=== PATIENT | female | born 1950 | race Caucasian/White ===

== ENCOUNTER 2023-09-06 20:03 | Inpatient (IN) | payer BC, OTHER ==
[~2023-09-06] VITALS: Ht 165.1 cm; Wt 77.2 kg
[2023-09-06] MEDS: MIDAZOLAM DRIP 50 mg/50mL 50 ML IV ONE (01:40)
[2023-09-06] MEDS ORDERED: NOREPINEPHRINE 8 MG/250ML KIT 250 ML IV ONE (20:06)
[2023-09-06 20:26] LABS: Hematocrit 30.5 % (36.0-46.0); Hemoglobin 8.4 g/dL (12.2-16.2); Mean Corpuscular Hemoglobin 30.6 pg (28.0-32.0); Mean Corpuscular Hgb Conc. 27.7 g/dL (32.0-36.0); Mean Corpuscular Volume 110.4 fL (80.0-100.0); Red Blood Cells 2.76 10^6/uL (4.0-5.20); Red Cell Distribution Width 14.7 % (11.8-14.3); White Blood Cell 22.1 10^3/uL (4.4-10.8)
[2023-09-06 20:30] VITALS: PULSE 76; RESP 18; O2SAT 100
[2023-09-06 20:37] LABS: Basophils % (manual) 0 (0.0-2.0); Blast Cells 0; Promyelocytes % 0
[2023-09-06 20:47] LABS: Alanine Aminotransferase 392 U/L (7-40); Albumin 2.7 g/dL (3.2-4.8); Alkaline Phosphatase 115 U/L (46-116); Anion Gap 16.00001 (5-15); Aspartate Aminotransferase 744 U/L (13-40); BUN/Creatinine Ratio 28.1 (10.0-20.0); Blood Urea Nitrogen 76 mg/dL (9-23); Calcium 11.2 mg/dL (8.7-10.4); Chloride 105 mmol/L (98-107); Glucose 238 mg/dL (74-106); Magnesium 2.8 mg/dL (1.6-2.6); Sodium 131 mmol/L (136-145)
[2023-09-06 20:48] LABS: Bilirubin, Total 0.3 mg/dL (0.2-1.0); Total Protein 4.5 g/dL (5.7-8.2)
[2023-09-06 20:50] LABS: INR 1.51 (0.9-1.15); Prothrombin Time 15.4 sec (9.3-11.8)
[2023-09-06 20:59] LABS: Carbon Dioxide < 10 mmol/L (20-30); Partial Thromboplastin Time 74.1 SEC (24.5-34.5)
[2023-09-06 21:00] LABS: Potassium 7.9 mmol/L (3.5-5.1)
[2023-09-06 21:21] LABS: Band Neutrophils % (manual) 28; Eosinophils % (manual) 1 (0-7); Lymphocytes % (manual) 21 (10.0-50.0); Metamyelocytes % 4; Monocytes % (manual) 10 (0-12); Myelocytes % 1
[2023-09-06 21:23] LABS: Platelet Estimate Increased; Reactive Lymphocytes 2
[2023-09-06 21:24] LABS: Macrocytosis Marked
[2023-09-06] MEDS: InsuLIN REG 1unit/0.01ml Soln (100units/ml) IV ONE (21:30)
[2023-09-06 21:56] LABS: Lactic Acid w/Reflex 14.5 mmol/L (0.4-2.0)
[2023-09-06] MEDS: CALCIUM GLUC 1,000mg/50ml-NS 50 ML IV ONE (22:14)
[2023-09-06] MEDS: cefTRIAXone 1GM/50ML D5W 50 ML IV ONE (22:14)
[2023-09-06] MEDS: SODIUM BICARB 8.4% 50Meq/50ml SYR Vial IV ONE ×2 (22:15)
[2023-09-06] MEDS: VANCOMYCIN 1GM/200ML 200 ML IV ONE (22:15)
[2023-09-06] MEDS: SODIUM CHLORIDE 0.9% 1,700 ML IV ONE (22:15)
[2023-09-06] MEDS: PANTOPRAZOLE 40 MG/10 ML VIAL INJ IV ONE (22:26)
[2023-09-06] MEDS: DOPamine 1600MCG/ML D5W 250 ML IV ONE (22:26)
[2023-09-06] MEDS: MIDAZOLAM DRIP 50 mg/50mL 50 ML IV SCH (22:30)
[2023-09-06] MEDS: DEXTROSE (50%) 50ML SYRG IV ONE (22:43)
[2023-09-07] VITALS (7 sets, daily range): BP systolic 59–182; BP diastolic 15–50; PULSE 69–121; RESP 18–33; TEMP 99.1; O2SAT 82–94
[2023-09-07] MEDS: SODIUM BICARB 8.4% 50Meq/50ml SYR Vial IV ONE (01:35)
[2023-09-07] MEDS: NOREPINEPHRINE 8 MG/250ML KIT 250 ML IV ONE (01:40)
[2023-09-07 01:57] LABS: Base Excess -23.5 mmol/L (-2.0-2.0)
[2023-09-07] MEDS: NOREPINEPHRINE 8 MG/250ML KIT 250 ML IV SCH (02:03)
[2023-09-07 02:37] LABS: Chloride 107 mmol/L (98-107)
[2023-09-07 02:38] LABS: Calcium 8.3 mg/dL (8.5-10.1); Carbon Dioxide 14 mmol/L (20-30)
[2023-09-07 02:43] LABS: BUN/Creatinine Ratio 25.5 (10.0-20.0); Blood Urea Nitrogen 72 mg/dL (9-23); Glucose 80 mg/dL (74-106)
[2023-09-07 02:59] LABS: Anion Gap 15 (5-15); Sodium 136 mmol/L (136-145)
[2023-09-07 03:00] LABS: Potassium 6.5 mmol/L (3.5-5.1)
[2023-09-07] MEDS ORDERED: ONDANSETRON HCL 4 MG/2 ML VIAL IV PRN (03:15)
[2023-09-07] MEDS ORDERED: NITROGLYCERIN 0.4 MG SL TAB SL PRN (03:15)
[2023-09-07] MEDS: CALCIUM GLUC 1,000mg/50ml-NS 50 ML IV ONE (03:15)
[2023-09-07] MEDS ORDERED: MORPHINE SULFATE INJ 2 MG/ml SYRG IV PRN (03:15)
[2023-09-07] MEDS: SODIUM BICARB 8.4% 50Meq/50ml SYR INJ IV ONE (03:15)
[2023-09-07] MEDS: DEXTROSE (50%) 50ML SYRG IV ONE (03:15)
[2023-09-07] MEDS ORDERED: VANCOMYCIN PER PHARMACY 0 MG IV SCH (03:15)
[2023-09-07] MEDS: SODIUM CHLORIDE 0.9% 1,000 ML IV SCH (03:15)
[2023-09-07] MEDS: ALBUTEROL SULF 2.5 MG/0.5ML(0.5%) NEB SOLN NEB ONE (03:15)
[2023-09-07] MEDS: PHENYLEPHRINE IV 250 ML IV SCH (04:24)
[2023-09-07] MEDS: InsuLIN REG 1unit/0.01ml Soln (100units/ml) IV ONE (05:02)
[2023-09-07 05:20] LABS: Hematocrit 29.6 % (36.0-46.0); Hemoglobin 9.3 g/dL (12.2-16.2); Mean Corpuscular Hemoglobin 30.2 pg (28.0-32.0); Mean Corpuscular Hgb Conc. 31.5 g/dL (32.0-36.0); Mean Corpuscular Volume 96.1 fL (80.0-100.0); Red Blood Cells 3.08 10^6/uL (4.0-5.20); Red Cell Distribution Width 13.9 % (11.8-14.3); White Blood Cell 12.2 10^3/uL (4.4-10.8)
[2023-09-07 05:53] LABS: Lactic Acid w/Reflex 12.2 mmol/L (0.4-2.0)
[2023-09-07 06:20] LABS: Chloride 107 mmol/L (98-107); Sodium 137 mmol/L (136-145)
[2023-09-07 06:23] LABS: Calcium 8.5 mg/dL (8.5-10.1)
[2023-09-07 06:27] LABS: BUN/Creatinine Ratio 23.1 (10.0-20.0); Blood Urea Nitrogen 69 mg/dL (9-23); Glucose 72 mg/dL (74-106)
[2023-09-07 06:45] LABS: Anion Gap 20.00001 (5-15)
[2023-09-07 06:47] LABS: Carbon Dioxide < 10 mmol/L (20-30)
[2023-09-07 07:20] LABS: Blast Cells 0; Eosinophils % (manual) 0 (0-7); Promyelocytes % 0; Reactive Lymphocytes 0
[2023-09-07] MEDS: SODIUM BICARB 50mEq/50ml Vial 100 ML in D5W 5% 1,000 ML IV SCH (07:59)
[2023-09-07 09:56] LABS: Band Neutrophils % (manual) 27; Basophils % (manual) 1 (0.0-2.0); Lymphocytes % (manual) 16 (10.0-50.0); Metamyelocytes % 7; Monocytes % (manual) 6 (0-12); Myelocytes % 5; Platelet Estimate Adequate
[2023-09-07] MEDS ORDERED: cefTRIAXone 1GM/50ML D5W 50 ML IV SCH (10:00)
== END 2023-09-07 08:39 | DRG 871 ==
LOC: ER 20:03 → EDUNIT# 20:03 → TELE 09-07 03:09
PROVIDERS: ADMIT Nurse Practitioner Family; ATTEND Nurse Practitioner Family
PROC: 0BH17EZ Insertion of Endotracheal Airway into Trachea, Via Natural or Artificial Opening (ICD-10-PCS; principal; 2023-09-06)
PROC: 5A1935Z Respiratory Ventilation, Less than 24 Consecutive Hours (ICD-10-PCS; 2023-09-06)
PROC: 06HY33Z Insertion of Infusion Device into Lower Vein, Percutaneous Approach (ICD-10-PCS; 2023-09-06)
PROC: 5A12012 Performance of Cardiac Output, Single, Manual (ICD-10-PCS; 2023-09-06)
DX: A41.9 Sepsis, unspecified organism (principal); E11.11 Type 2 diabetes mellitus with ketoacidosis with coma; J96.01 Acute respiratory failure with hypoxia; K72.00 Acute and subacute hepatic failure without coma; I13.0 Hypertensive heart and chronic kidney disease with heart failure and stage 1 through stage 4 chronic kidney disease, or unspecified chronic kidney disease; N17.9 Acute kidney failure, unspecified; I46.9 Cardiac arrest, cause unspecified; Z66 Do not resuscitate; N18.9 Chronic kidney disease, unspecified; I50.9 Heart failure, unspecified; E11.22 Type 2 diabetes mellitus with diabetic chronic kidney disease; E87.5 Hyperkalemia; Z87.11 Personal history of peptic ulcer disease
CPT/HCPCS: 36415; 36600; 71045; 80048; 80053; 80202; 82805; 82962; 83605; 83735; 84484; 85007; 85027; 85610; 85730; 86850; 86900; 86901; 87040; 87070; 87076; 87077; 87186; 87205; 93005; 94002; 94003; 94644; 96365; 99291; C9113; G0378; J1815; J2250